=== PATIENT | female | born 1945 | race Two or more races ===

== ENCOUNTER → 2016-09-27 | Outpatient (CLI) | payer MEDICAID, OTHER ==
[~2016-09-27] MED LIST: BUPR75TA5 PO; CHOL10003 PO; Diltiazem Hcl PO; MULT1TAB52 PO; MULT1TAB90 PO; OMEP40CA2 PO; PANT40TA5 PO; PROAIR HFA8.5 GM IH; PROP150T2 PO; PYRI100T PO; RIVA10TA PO; SERT50TA PO; SOLI10TA PO; TAMOXIFEN CITRATE PO
--- NOTE | 2016-09-27 13:19 | RAD ---
Chest, 2 views, 09/27/2016: History: Shortness of breath, crackles Comparison is made to a study from 05/25/2015. The heart appears to be within normal limits in size. There is mild tortuosity of the thoracic aorta. The pulmonary vascularity is normal. There is minimal basilar scarring. No acute infiltrates are seen. There is no evidence of pleural fluid. Moderate hypertrophic spurring is present in the spine. IMPRESSION: No acute cardiopulmonary abnormality is detected.
== END | disposition home or self-care (01) ==
LOC: RAD 12:49
PROVIDERS: ATTEND Internal Medicine
DX: R06.02 Shortness of breath (principal); R09.89 Other specified symptoms and signs involving the circulatory and respiratory systems
CPT/HCPCS: 71020

== ENCOUNTER → 2018-07-18 | Outpatient (CLI) | payer OTHER ==
[~2018-07-18] MED LIST changes: +ALBU2.5V8 IH; +FURO-69 PO; +LOSA-73 PO; +METO200T46 PO; +POTA10TA12 PO; -PROAIR HFA8.5 GM IH; -SOLI10TA PO; +SOLI10TA2 PO
--- NOTE | 2018-07-18 16:33 | RAD ---
EXAM: Pelvic sonogram. HISTORY: Postmenopausal bleeding. TECHNIQUE: Transabdominal and transvaginal sonographic imaging of the pelvis was performed. COMPARISON: None. FINDINGS: The uterus measures 7.4 x 5.1 x 3.9 cm. The endometrial stripe is heterogeneously thickened, measuring 2.0 cm. The ovaries are obscured due to bowel gas. No pelvic free fluid is seen. IMPRESSION: 1. Diffusely heterogeneous thickened endometrium. In the setting of postmenopausal bleeding, tissue sampling is recommended for definitive diagnosis. 2. Obscured ovaries. Electronically signed by: Brenda Wisdom MD (07/18/2018 4:30 PM) [id number]
== END | disposition home or self-care (01) ==
LOC: US 15:13
PROVIDERS: ATTEND Obstetrics & Gynecology
DX: N95.0 Postmenopausal bleeding (principal); R93.89 Abnormal findings on diagnostic imaging of other specified body structures
CPT/HCPCS: 76830; 76856

== ENCOUNTER 2018-09-11 08:34 | Day surgery (SDC) | payer OTHER ==
[~2018-09-11] VITALS: Ht 170.2 cm; Wt 129.3 kg
[~2018-09-11 08:34] MED LIST changes: -FURO-69 PO; +HYDROmorphone 2 MG/ML VIAL IV PRN; +IV RINGERS,LACTATED 1000ML 1,000 ML IV SCH; +LIDOCAINE 1% PF 2 ML VIAL. ID PRN; -LOSA-73 PO; -METO200T46 PO; +MORPHINE SULFATE 2 MG/ML VIAL. IV PRN; +ONDANSETRON PF 4 MG/2 ML VIAL. IV PRN; -POTA10TA12 PO; +PROCHLORPERAZINE 10 MG/2 ML VIAL. IV PRN; +ceFAZolin SODIUM 3 GM in IV DEXTROSE 5% 100ML 100 ML IV PRN; +fentaNYL PF VIAL 100 MCG/2 ML VIAL IV PRN
[2018-09-11] MEDS ORDERED: SILVER NITRATE STICK TP ONE (09:22)
[2018-09-11] MEDS ORDERED: VASOPRESSIN 20 UNIT/ML VIAL. ONE (09:23)
[2018-09-11] MEDS ORDERED: OXYTOCIN 10 UNIT/ML VIAL. ONE (09:23)
[2018-09-11] MEDS ORDERED: METHYLERGONOVINE MALEATE 0.2 MG/ML VIAL. IM ONE (09:23)
[2018-09-11] MEDS ORDERED: FURO-69 PO (09:28)
[2018-09-11] MEDS ORDERED: POTA10TA12 PO (09:28)
[2018-09-11] MEDS ORDERED: LOSA-73 PO (09:28)
[2018-09-11] MEDS ORDERED: METO200T46 PO (09:28)
[2018-09-11 09:59] LABS: BASO # 0.1 x10^3/uL (0.0-0.2); BASO % 1 % (0-3); EOS # 0.4 x10^3/uL (0.0-0.7); EOS % 4 % (0-3); HEMATOCRIT 44.3 % (36.0-47.0); HEMOGLOBIN 14.7 g/dL (12.0-15.5); LYMPH # 1.5 x10^3/uL (1.0-4.8); LYMPH % 15 % (24-48); MEAN CORPUSCULAR HEMOGLOBIN 30 pg (25-35); MEAN CORPUSCULAR HGB CONC 33 g/dL (31-37); MEAN CORPUSCULAR VOLUME 89 fL (79-100); MONO # 0.7 x10^3/uL (0.0-1.1); MONO % 7 % (0-9); NEUT # 7.5 x10^3uL (1.8-7.7); NEUT % 73 % (31-73); PLATELET COUNT 188 x10^3/uL (140-400); RED BLOOD COUNT 4.98 x10^6/uL (3.50-5.40); RED CELL DISTRIBUTION WIDTH 14.3 % (11.5-14.5); WHITE BLOOD COUNT 10.2 x10^3/uL (4.0-11.0)
[2018-09-11 10:07] LABS: CALCIUM 8.8 mg/dL (8.5-10.1); CREATININE 0.9 mg/dL (0.6-1.0); POTASSIUM 4.3 mmol/L (3.5-5.1)
[2018-09-11 10:11] LABS: PROTHROMBIN TIME PATIENT 14.6 SEC (11.7-14.0)
[2018-09-11] MEDS ORDERED: LIDOCAINE 2% PF 5 ML VIAL. ONE (10:21)
[2018-09-11] MEDS ORDERED: PROPOFOL 20 ML IV ONE (10:21)
[2018-09-11] MEDS ORDERED: DEXAMETHASONE SOD PHOS 20 MG/5 ML VIAL. ONE (10:22)
[2018-09-11] MEDS ORDERED: DEXAMETHASONE SOD PHOS 4 MG/ML VIAL ONE (10:22)
[2018-09-11] MEDS ORDERED: ONDANSETRON PF 4 MG/2 ML VIAL. ONE (10:22)
[2018-09-11] MEDS ORDERED: fentaNYL PF VIAL 100 MCG/2 ML VIAL ONE (10:23)
[2018-09-11] MEDS ORDERED: MIDAZOLAM HCL/PF 2 MG/2 ML VIAL. ONE (10:23)
--- NOTE | 2018-09-11 11:23 | PDOC ---
BRIEF OPERATIVE NOTE Date: September 11, 2018 Pre-Op Diagnosis endometrial thickening, PMB Post-Op Diagnosis same Procedure Performed hysteroscopy D&C with TruClear system Surgeon Dr. Sapna Bennett Anesthesiologist Dr. Robledo Anesthesia Type: General Blood Loss <5cc IV Fluid see anesthesia records Urine Output straight cath prior to procedure Specimens Obtained endometrial currettings Findings small cervix, easily dilated to 6/7 hegar dilators, sounded to 8cm, abundant tissue possible polyps mixed in Complications none Operative Note [id number] SAPNA BENNETT MD September 11, 2018 11:23
[2018-09-11] MEDS ORDERED: diphenhydrAMINE HCL 25 MG CAPSULE PO PRN (11:30)
[2018-09-11] MEDS ORDERED: MAG HYDROX/ALUMINUM HYD/SIMETH 30 ML ORAL.SUSP PO PRN (11:30)
[2018-09-11] MEDS ORDERED: NALOXONE 0.4 MG/ML VIAL. IV PRN (11:30)
[2018-09-11] MEDS ORDERED: diphenhydrAMINE 50 MG/ML VIAL IV PRN (11:30)
[2018-09-11] MEDS ORDERED: SIMETHICONE 80 MG TAB.CHEW PO PRN (11:30)
[2018-09-11] MEDS ORDERED: HYDROcodone/APAP 5/325MG 1 TAB TABLET PO PRN (11:30)
[2018-09-11] MEDS ORDERED: 0.9 % SODIUM CHLORIDE 10 ML DISP.SYRIN. IV PRN (11:30)
[2018-09-11] MEDS ORDERED: CALCIUM CARBONATE 500 MG TAB.CHEW PO PRN (11:30)
--- NOTE | 2018-09-11 12:11 | OP ---
DATE OF SURGERY: 09/11/2018 PREOPERATIVE DIAGNOSES: Postmenopausal bleeding with endometrial thickening seen on sonogram. POSTOPERATIVE DIAGNOSES: Postmenopausal bleeding with endometrial thickening seen on sonogram. PROCEDURE: Hysteroscopy, D and C with TruClear system. SURGEON: Sonja Bennett MD. HEAT AND FROST INSULATOR HELPER: OR personnel. ANESTHESIA: General. ANESTHESIOLOGIST: Dr. Robledo. ESTIMATED BLOOD LOSS: Less than 5 mL. IV FLUIDS: Please see anesthesia records. URINE OUTPUT: Straight cath prior to procedure. SPECIMENS: Endometrial curettings. FINDINGS: A small cervix, easily dilated to 6-7 with the Hegar dilators, sounded to 8 cm, abundant tissue with possible polyps mixed in. TruClear system had a fluid deficit of 550 mL. We used a total volume of 3570. Resection time was 4 minutes and 10 seconds. We used the soft tissue shaver mini blade with the TruClear Elite hysteroscope mini. COMPLICATIONS: None. DESCRIPTION OF PROCEDURE: This patient was taken to the operating room where general anesthesia was placed. The patient was placed in dorsal lithotomy position in Elvis stirrups. The patient's vagina was prepped and draped in the normal sterile fashion and straight cath urine was done prior to my arrival. Upon my arrival, a timeout was performed. Once everyone agreed, a weighted speculum was placed in the patient's vagina. Single-tooth tenaculum was used to grasp the anterior lip of the cervix. The Hegar dilators were used to go into the cervix. She was easily dilated to a 6-7 with the Hegar dilators. She sounded to 8 cm. The scope had already been primed, so at this point it was placed in with the above findings, the abundant tissue with possible polyps mixed in and behind it. The soft tissue shaver mini was used and placed in, it was window locked. Once it was done, the resection was began under direct visualization. Once it was cleared out, a picture was taken showing a normal uterine cavity, but she did have abundant tissue, 4 minutes and 10 seconds of resection time was done. This will all be sent for permanent pathology. The device was removed. The tenaculum was removed. There was no bleeding. The tenaculum was removed with no bleeding and the procedure was ended. SONJA BENNETT MD DR: BRENDA/emir JOB#: [id number] / [id number]
[2018-09-11 12:30] VITALS: BP 155/88
--- NOTE | 2018-09-17 15:06 | PATHOLOGY ---
[facility] Accession Number: [id number] . 01 Material submitted: . endometrium - ENDOMETRIAL TISSUE . 01 Clinical history: . Bleeding . 02 Diagnosis: Endometrial biopsy: - ENDOMETRIAL ADENOCARCINOMA, FIGO GRADE 3 OF 3. SEE COMMENT. LBQ/09/17/2018 . 02 Comment: The entire specimen is submitted for histologic evaluation and reveals an endometrial adenocarcinoma. The tumor has a papillary and villoglandular architecture with focal solid areas (architectural grade 2). Tumor cells show marked nuclear atypia (nuclear grade 3). Mitotic figures are readily demonstrated. Immunoperoxidase stains for p16 and p53 are obtained on block A3 and yield the following results: . P16 (A3) - Tumor cells positive P53 (A3) - Tumor cells negative . The findings are supportive of the diagnosis of a FIGO grade 3 of 3 endometrial adenocarcinoma. The case is also examined by Dr. Zeus Bacon, who concurs with the diagnosis. . Results are reported to Dr. Sapna Lee on 09/17/18 at 11:00 a.m. (JPM/db; 09/17/2018) . Special stain performed: Immunoperoxidase stains for p16 and p53 on A3. . 02 Electronically signed: . Too Garcia MD, Pathologist NPI- [id number] . 01 Gross description: . The specimen is received in formalin, labeled "Megan Torres, endometrial tissue". Received are multiple segments of pink-salazar soft tissue measuring 4.8 x 3.7 x 0.7 cm in aggregate dimensions. The specimen is filtered and entirely submitted in cassettes A1 through A6. (CAA; 09/11/2018) QAC/QAC . 02 Pathologist provided ICD-10: C54.1 . 02 CPT . 047514, I24367, [id number] Specimen Comment: A courtesy copy of this report has been sent to Specimen Comment: [phone], . Specimen Comment: Report sent to / DR SILVA Performed at: 01 [facility] [address], [place] [id number] MD Kelvin Ruiz MD Phone: [phone] Performed at: 02 [facility] [address] [place], [place] [id number] MD Too Garcia MD Phone: [phone]
== END 2018-09-11 13:06 | disposition home or self-care (01) ==
LOC: SURG 08:34
PROVIDERS: ATTEND Obstetrics & Gynecology
DX: C54.1 Malignant neoplasm of endometrium (principal); Z82.49 Family history of ischemic heart disease and other diseases of the circulatory system; Z79.899 Other long term (current) drug therapy; Z90.13 Acquired absence of bilateral breasts and nipples; Z98.890 Other specified postprocedural states; Z85.3 Personal history of malignant neoplasm of breast
CPT/HCPCS: 36415; 58558; 80048; 85025; 85610; 85730; A7015; J1100; J2001; J2250; J2405; J2704; J3010; 88305; 88341; 88342; J2210; J2590; J3490